=== PATIENT | female | born 1980 | race American Indian/Alaskan Native ===

== ENCOUNTER 2018-04-11 08:09 | Emergency (ER) | payer BC ==
[2018-04-11 08:23] VITALS: BMI 44.6
[2018-04-11 08:24] VITALS: RESP 18; O2SAT 100
--- NOTE | 2018-04-11 08:24 | ED PDOC ---
Arrival/HPI - General Time Seen by Provider: 04/11/18 08:20 Historian: Patient - History of Present Illness Narrative History of Present Illness (Text): 04/11/18 08:50 A 38 year old female, with no significant past medical history, presents to the emergency department complaining of right lower dental pain. Patient reports she had extraction performed 03/26/2018 to her right lower gum. Patient later on began experiencing pain. States she returned to the dentist where she had an X- ray performed, and there was a bone found in the area were extraction was performed and had bone take out. She was prescribed pain medications, however had no relief of pain. Patient states she has taken Tylenol, Codeine, Aliv, Advil, and Ibuprofen 800 mg, and still no relief of pain. Patient denies any other complaints at this time. No PMD Past Medical History - Provider Review Nursing Documentation Reviewed: Yes - Tetanus Immunization Tetanus Immunization: Unknown - Past Medical History Past Medical History: No Previous - Psychiatric Hx Substance Use: No - Past Surgical History Past Surgical History: No Previous - Suicidal Assessment Feels Threatened In Home Enviroment: No Family/Social History - Physician Review Nursing Documentation Reviewed: Yes Family/Social History: No Known Family HX Smoking Status: 10 per day Hx Alcohol Use: Yes Hx Substance Use: No Hx Substance Use Treatment: No Allergies/Home Meds Allergies/Adverse Reactions: Allergies No Known Allergies Allergy (Verified 04/11/18 08:23) Review of Systems - Physician Review All systems were reviewed & negative as marked: Yes - Review of Systems Constitutional: absent: Fevers, Night Sweats Musculoskeletal: Neck Pain (right-side), Other (dental pain right lower gum region, radiating to right-side neck and face.) Physical Exam - Physical Exam Narrative Physical Exam (Text): Gen: VS reviewed, alert, well developed, well nourished, nontoxic, mild distress. ENT: normal pharynx, no swelling to gums, missing tooth to right premolar area, no purulent drainage, no regional adenopathy. Eye: EOMI, PERRL. Neck: no JVD, supple, no adenopathy. CV: regular rate, regular rhythm, no rubs, no murmur, no gallops, S1, S2, pulses equal and strong. Pulm: no distress, clear to auscultation, no wheeze, no rhonchi, breath sounds equal, no rales. Abd: soft, nontender, no guarding, no rebound, no rigidity, normal bowel sounds. Ext: no edema. Skin: good color, no rash, no cyanosis. Psych: responds appropriately to questions, normal affect. Neuro: oriented x 3, CN2-12 intact grossly, motor intact, sensation intact. Vital Signs Reviewed: Yes Temperature: Afebrile Blood Pressure: Normal Pulse: Regular Respiratory Rate: Normal Appearance: Positive for: Well-Appearing, Non-Toxic, Comfortable Pain Distress: None Mental Status: Positive for: Alert and Oriented X 3 Medical Decision Making ED Course and Treatment: 04/11/18 08:53 Impression: 38 year old female with right lower dental pain. Plan: -- Lidocaine -- Reassess and disposition Progress Notes: Procedures - Time-Out Type of Procedure: dental block Correct Patient (with visual ID + MR# on ID Band): Yes Correct Procedure: Yes - Additional Procedures Progress: with verbal consent, 3cc of lidocaine with epi was infiltrated into the right lower gumline adjacent to the affected tooth. patient reported immediate relief of pain. patient feels better and ready to go home and will follow up with the dentist. - Scribe Statement The provider has reviewed the documentation as recorded by the El Solomon Provider Scribe Attestation: All medical record entries made by the Scribe were at my direction and personally dictated by me. I have reviewed the chart and agree that the record accurately reflects my personal performance of the history, physical exam, medical decision making, and the department course for this patient. I have also personally directed, reviewed, and agree with the discharge instructions and disposition. Disposition/Present on Arrival - Present on Arrival Any Indicators Present on Arrival: No History of DVT/PE: No History of Uncontrolled Diabetes: No Urinary Catheter: No History Surgical Site Infection Following: None - Disposition Have Diagnosis and Disposition been Completed?: Yes Diagnosis: Dental alveolar anomaly Disposition: HOME/ ROUTINE Disposition Time: 09:56 Patient Plan: Discharge Condition: STABLE Additional Instructions: Follow up with a dentist as soon as possible. MAMTA CARTER, thank you for letting us take care of you today. Your provider was Dr. Leon Young and you were treated for dental problem. The emergency medical care you received today was directed at your acute symptoms. If you were prescribed any medication, please fill it and take as directed. It may take several days for your symptoms to resolve. Return to the Emergency Department if your symptoms worsen, do not improve, or if you have any other problems. Please contact your doctor or call one of the physicians/clinics you have been referred to that are listed on the Patient Visit Information form that is included in your discharge packet. Bring any paperwork you were given at discharge with you along with any medications you are taking to your follow up visit. Our treatment cannot replace ongoing medical care by a primary care provider outside of the emergency department. Thank you for allowing the [facility] team to be part of your care today. If you had an X-Ray or CT scan: A Radiologist will review the ED reading if any change in treatment is needed we will contact you. If you had a blood, urine, or wound culture: It will take several days for the results, if any change in treatment is needed we will contact you. If you had an STI test: It will take 48 hours for the results. Please call after 1 week if you have not heard back. Prescriptions: Amoxicillin/Clavulanate [Augmentin 875 MG-125 MG] 1 tab PO BID 7 Days #14 tab
[2018-04-11] MEDS ORDERED: Lidocaine 1%/Epinephrine 1:100000 30 ml vial IJ ONE (08:52)
[2018-04-11 10:15] VITALS: TEMP 98.4
[2018-04-11 10:16] VITALS: BP 127/82; PULSE 64
== END 2018-04-11 10:03 | disposition home or self-care (01) ==
LOC: ED 08:09
DX: M26.70 Unspecified alveolar anomaly (principal)